=== PATIENT | male | born 1945 | race Caucasian/White ===

== ENCOUNTER → 2017-03-29 | Outpatient (CLI) | payer MEDICARE, BC ==
--- NOTE | 2017-03-29 10:28 | RAD ---
One or more of the following individualized dose reduction techniques were utilized for this examination: 1. Automated exposure control 2. Adjustment of the mA and/or kV according to patient size 3. Use of iterative reconstruction technique CT brain without contrast History: Unresponsive, right eye deviation CT scan of brain was done without contrast. There is mild mucosal thickening in the right maxillary antrum. There is no intracranial hemorrhage or subdural hematoma. There is mild diffuse atrophy. An acute CVA is not identified. There is no mass or shift of the midline. Impression: 1. Mild atrophy. 2. No intracranial hemorrhage or acute finding noted.
== END | disposition home or self-care (01) ==
LOC: CT 10:00
PROVIDERS: ATTEND Internal Medicine
DX: H51.8 Other specified disorders of binocular movement (principal); H44.523 Atrophy of globe, bilateral
CPT/HCPCS: 70450